=== PATIENT | male | born 1960 | race African-American/Black ===

== ENCOUNTER 2020-05-07 10:08 | Observation (INO) | payer BC, SELFPAY ==
[2020-05-07] VITALS (14 sets, daily range): BP systolic 112–171; BP diastolic 61–104; PULSE 50–83; RESP 14–25; TEMP 36.2–36.9; O2SAT 92–100
--- NOTE | ~2020-05-07 | XR_ITS ---
EXAMINATION: CYSTOGRAM DATE: 05/07/2020 15:44 INDICATION: Urethral dilation. Complex catheter placement. TECHNIQUE: 8 fluoroscopic spot images of the pelvis were obtained during procedure performed by Dr. Hong lynne. Radiologist was not present for the imaging or procedure. The amount of fluoroscopy time use d during this procedure was 0.4 minutes. COMPARISON: None. FINDINGS: Fluoroscopic images demonstrate a wire advanced into the bladder. A balloon passed over the wire proj ects over the pubic symphysis likely for urethral dilation. Final image demonstrates the bulb with a Thomason catheter as well as small amount of contrast within the bladder with no evident contrast extrav asation. IMPRESSION: 1. Fluoroscopy utilized during reported urethral dilation with no evident post procedure contrast ext ravasation. See procedure note for further detail. Reviewed, dictated and finalized at location A. IMPRESSION: 1. Fluoroscopy utilized during reported urethral dilation with no evident post procedure contrast extravasation. See procedure note for further detail.
[2020-05-07] MEDS: LIDOCAINE HCL 2% GEL UROJET 10 ML PKG MUCOUS MEM ×2 (10:29→15:20)
--- NOTE | 2020-05-07 10:32 | PC.NURSE ---
UNSUCCESSFUL ATTEMPTS X2 FOR PLACEMENT OF VANCE CATH. COUDE USED SECOND TIME WITHOUT SUCCESS, TIERRA CARLSON INFORMED, STATES THAT SHE WILL CONTACT UROLOGY FOR PLACEMENT.
--- NOTE | 2020-05-07 10:34 | ED.MALEGU ---
HPI - Male Genitourinary General Chief complaint: Abdominal Pain <MIKA Howard Last Filed: 05/07/20 13:24> Stated complaint: ABD PAIN/URINARY RETENTION <MIKA Howard Last Filed: 05/07/20 13:24> Source: patient <MIKA Howard Last Filed: 05/07/20 13:24> Mode of arrival: EMS <MIKA Howard Last Filed: 05/07/20 13:24> Limitations: no limitations <MIKA Howard Last Filed: 05/07/20 13:24> History of Present Illness HPI Narrative: This is a 59 year old male that presents to the ER for urinary retention since this morning. Reports he has been unable to void and when he tries to it is painful. Reports he does take a medication for his prostate, but he is unsure what it is. Reports he has not had trouble with urinary retention in the past. Denies fever, abdominal pain, nausea, or vomiting. <MIKA Howard Last Filed: 05/07/20 13:24> Related Data Home medications: Home Medications Medication Instructions Recorded Confirmed amlodipine [Norvasc] 2.5 mg PO DAILY 05/07/20 05/07/20 atorvastatin [Lipitor] 40 mg PO DAILY 05/07/20 05/07/20 chlorthalidone 25 mg PO DAILY 05/07/20 05/07/20 lisinopril [Prinivil] 10 mg PO DAILY 05/07/20 05/07/20 potassium chloride [Klor-Con M20] 20 meq PO DAILY 05/07/20 05/07/20 tamsulosin [Flomax] 0.4 mg PO DAILY 05/07/20 05/07/20 <MIKA Howard Last Filed: 05/07/20 13:24> Allergies/Adverse reactions: Allergies Allergy/AdvReac Type Severity Reaction Status Date / Time No Known Allergies Allergy Verified 05/07/20 14:07 <MIKA Howard Last Filed: 05/07/20 13:24> Review of Systems Review of Systems: Narrative: CONSTITUTIONAL: Denies fever GASTROINTESTINAL: Reports abdominal pain. Denies nausea, vomiting, or diarrhea. GENITOURINARY: Reports dysuria and hematuria. <Quynh Christopher PA-C - Last Filed: 05/07/20 13:24> All systems reviewed & are unremarkable except as noted in HPI and below <Quynh Christopher PA-C - Last Filed: 05/07/20 13:24> [facility] Past Medical History Medical History: Medical History History of hypertension <Quynh Christopher PA-C - Last Filed: 05/07/20 13:24> Social History Social History: Social History Smoking status: Never smoker Substance use: never Gender identity (if verbalized by the patient): Male <Qunyh Christopher PA-C - Last Filed: 05/07/20 13:24> Exam Narrative: Exam Narrative: GENERAL: Well-appearing, obese, and in mild acute distress due to urinary discomfort. HEAD: Normocephalic, atraumatic. EYES: EOMI. CHEST: Clear to auscultation. No respiratory distress. No wheezes rales or rhonchi HEART: Regular rate and rhythm. No murmur heard. Normal peripheral pulses. ABDOMEN: Soft, nontender, nondistended, normal active bowel sounds. EXTREMITIES: Normal range of motion. No edema. SKIN: Warm, dry, no rash. NEURO: No focal deficits. Alert and oriented x3. PSYCH: Normal mood and affect <Quynh Christopher PA-C - Last Filed: 05/07/20 13:24> Course PIT TANNER/PA Physician Supervision For this patient encounter, I reviewed the PIT TANNER or PA documentation, treatment plan, and medical decision making; and I had [id number] time with this patient. He presented with urinary retention. Staff attempted to place renner catheter but they were unable to get. He was able to urinate a small amount and it was bloody. Urologist also unable to pass catheter so he will be taken to ER. HE is sitting in bed with mild distress due to pain. Respiratory stable. <Izabela Ball MD - Last Filed: 05/07/20 16:32> Consultations Consultation #1: Urology, Dr. Arce was consulted who also attempted at Renner catheter placement with bedside cystoscopy. Were still unable to get past a stricture in the urethra. Patient will be taken to
[2020-05-07 10:41] LABS: Add Urine Microscopic? YES; Appearance Urine Cloudy (Clear); Bilirubin Urine Negative (Negative); Blood Urine 3+ (Negative); Color Urine Red (Yellow); Glucose Urine UA Negative (Negative); Ketones Urine Negative (Negative); Leukocyte Esterase Ur Trace LEU/UL (Negative); Mucus Urine Rare /lpf; Nitrate Urine Negative (Negative); Protein Urine 1+ mg/dL (Negative); RBC Urine >75 /hpf (0-2); Specific Grav Ur 1.014 (1.001-1.035); Squamous Epithelial Cell Urine Rare /hpf (Few); Urobilinogen Urine Negative mg/dL (<2.0); WBC Urine 21-30 /hpf
--- NOTE | 2020-05-07 10:47 | PC.NURSE ---
UPON ROUNDING ON PT, PT ON PHONE UPSET WITH FAMILY THAT HE HAS NOT GOT NOTHIN FOR THIS PAIN. I REMINDED PT THAT HE RECIEVED PAIN MEDICATION EN ROUTE (SEE INITIAL NOTE) AND THAT I DID INJECT LIDOCAINE INTO HIS URETER TO HEAL NUMB THE AREA BUT THAT IT TAKES TIME TO TAKE EFFECT. PT HUNG UP PHONE ABRUPTLY. NO FURTHER QUESTIONS.
[2020-05-07 10:51] LABS: Basophils Percent Auto 0.7 % (0.2-1.2); Eosinophils Percent Auto 0.9 % (0-4.4); Hematocrit 44.1 % (42.0-52.0); Hemoglobin 15.1 g/dL (14.0-18.0); Immature Granulocyte Absolute 0.01 K/mm3 (0.00-0.031); Immature Granulocyte Percent A 0.2 % (0-0.5); Lymphocytes Absolute Auto 1.14 K/mm3 (0.9-3.2); Lymphocytes Percent Auto 25.4 % (18.3-44.2); Mean Corpuscular HGB Conc 34.2 g/dl (32-36); Mean Corpuscular Hemoglobin 32.1 pg (26-34); Mean Corpuscular Volume 93.8 fl (80-100); Mean Platelet Volume 10.3 fl (7.4-10.4); Monocytes Absolute Auto 0.3 K/mm3 (0.1-0.6); Monocytes Percent Auto 7.6 % (2.6-8.5); Neutrophils Absolute Auto 2.9 K/mm3 (1.3-6.7); Neutrophils Percent Auto 65.2 % (45.5-73.1); Platelet Count Result 202 k/mm3 (150-375); White Blood Count 4.5 K/mm3 (4.5-10.0)
[2020-05-07 11:03] LABS: Blood Urea Nitrogen 18 mg/dL (9-20); Calcium 9.7 mg/dL (8.4-10.2); Carbon Dioxide 25 mmol/L (22-30); Chloride 103 mmol/L (98-107); Estimated CRCL calculation 90 ml/min; Estimated Glomerular Filt Rate > 60; Glucose 120 mg/dL (75-110); Potassium 3.7 mmol/L (3.4-5.0); Sodium 137 mmol/L (137-145)
--- NOTE | 2020-05-07 11:53 | PC.NURSE ---
UPDATED PT WHEN ROUNDING THAT WE ARE STILL AWAITING ARRIVAL OF UROLOGY TO ASSESS FOR CATHETER INSERTION. TIERRA ALDO INFORMED STATES THAT SHE HAS NOT SEEN UROLOGY YET.
[2020-05-07] MEDS: ONDANSETRON INJ 4 MG/2 ML VIAL IV PUSH ×2 (12:17→16:00)
[2020-05-07] MEDS: MORPHINE SULFATE 2 MG/ML INJ IV PUSH (12:17)
--- NOTE | 2020-05-07 12:31 | PC.NURSE ---
urology at bedside for cath placement.
--- NOTE | 2020-05-07 12:53 | PC.NURSE ---
pablito hoover at bedside at this time to attempt renner placement.
--- NOTE | 2020-05-07 13:22 | PC.NURSE ---
report called to driver/merchandiser at this time.
--- NOTE | 2020-05-07 13:31 | PM.IMHP ---
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 He states that he feels as if he has to void but has extreme pain is unable to do so. There has been multiple attempts at Thomason catheter placement by the emergency room. Were asked to see him regarding further management. Patient states that he is had an episode of urinary retention before but did not require any intervention as he was able to eventually void. States that he does have a good force of stream but strains to empty his bladder. Denied any significant nocturia at this point time. Denies any prior prostatic or urethral surgery. Review of Systems Review of Systems: All systems reviewed & are unremarkable except as noted in HPI and below PMFSH Past Medical History Medical History History of hypertension Social History Social History Smoking status: Never smoker Substance use: never Gender identity (if verbalized by the patient): Male Meds Home Medications and Allergies Home Medications Medication Instructions Recorded Confirmed Type amlodipine 2.5 mg PO DAILY 05/07/20 History Allergies Allergy/AdvReac Type Severity Reaction Status Date / Time No Known Allergies Allergy Verified 05/07/20 10:44 Vital Signs Vital Signs - 24 hr 05/07/20 10:06 05/07/20 10:32 05/07/20 11:41 Temperature 36.7 C Pulse Rate 79 79 64 Respiratory Rate 21 H 25 H 23 H Blood Pressure 171/86 H 171/86 H Pulse Oximetry 100 100 97 05/07/20 12:32 05/07/20 13:23 Temperature Pulse Rate 83 60 Respiratory Rate 19 15 Blood Pressure 145/102 H 142/104 H Pulse Oximetry 100 100 Exam Const: General: uncomfortable HENMT: General nose exam: Normal nares present Eyes: EOM: EOMs intact bilaterally Resp: Effort & Inspection: normal respiratory effort Cardio: Rate: regular rate : Male General Exam: Yes normal external exam Neuro: Speech: normal speech H&P: Results Labs Labs: Short CBC 05/07/20 Range/Units 10:44 WBC 4.5 (4.5-10.0) K/mm3 Hgb 15.1 (14.0-18.0) g/dL Hct 44.1 (42.0-52.0) % Plt Count 202 (150-375) k/mm3 BMP 05/07/20 10:44 Sodium 137 Potassium 3.7 Chloride 103 Carbon Dioxide 25 BUN 18 Creatinine 1.10 Glucose 120 H Calcium 9.7 Urine 05/07/20 Range/Units 10:31 Urine Color Red H (Yellow) Urine Appearance Cloudy H (Clear) Urine pH 7.0 (5.0-9.0) Ur Specific [place] 1.014 (1.001-1.035) Urine Protein 1+ H (Negative) mg/dL Urine Glucose (UA) Negative (Negative) mg/dL Assessment and Plan Assessment and plan (1) Acute urinary retention: Code(s): R33.8 - Other retention of urine Status: Acute Assessment and Plan: Flexible cystoscopy was attempted at the bedside. He was prepped and draped in usual sterile fashion. Sixteen [place] scope was inserted into the urethra. At the bulbar urethra were unable to visualize any orifice. most likely has had a urethral stricture Which is made Thomason catheter placement unsuccessful. Multiple attempts at Thomason catheter placement has also resulted in some Thomason trauma to the area. will need to go to the operating room for cystoscopy retrograde urethrogram urethral dilation and possible suprapubic tube if unsuccessful at Thomason placement. I have spoken to his daughters And patient as well.
[2020-05-07] MEDS: LACTATED RINGERS 1,000 ML 30 ML IV CONT (13:50)
--- NOTE | 2020-05-07 14:04 | WPDANESEPPF ---
Anes - Initial Pre Proc Eval Procedure: Operation Date: 05/07/20 14:00 Proposed Procedures p CYSTOSCOPY,URETHROGRAM,POSSIBLE URETHERAL DILATATION - Biju Arce MD s POSSIBLE SUPRAPUBIC CATHETER INSERTION - Biju Arce MD Date/Time: 05/07/20 14:04 Surgeon: Biju Arce MD Pre Op Diagnosis: ABD PAIN/URINARY RETENTION Patient Data Age: 59 Gender: M Height: 5 ft 9 in Weight: 136.4 kg Last Vital Signs Temp 98.1 F 05/07/20 10:06 Pulse 60 05/07/20 13:23 Resp 15 05/07/20 13:23 BP 142/104 H 05/07/20 13:23 Pulse Ox 100 05/07/20 13:23 Allergies Allergy/AdvReac Type Severity Reaction Status Date / Time No Known Allergies Allergy Verified 05/07/20 10:44 Home Medications Medication Instructions Recorded Confirmed Type amlodipine [Norvasc] 2.5 mg PO DAILY 05/07/20 05/07/20 History atorvastatin [Lipitor] 40 mg PO DAILY 05/07/20 05/07/20 History chlorthalidone 25 mg PO DAILY 05/07/20 05/07/20 History lisinopril [Prinivil] 10 mg PO DAILY 05/07/20 05/07/20 History potassium chloride [Klor-Con M20] 20 meq PO DAILY 05/07/20 05/07/20 History tamsulosin [Flomax] 0.4 mg PO DAILY 05/07/20 05/07/20 History Laboratory Tests 05/07/20 05/07/20 05/07/20 10:31 10:44 10:44 WBC 4.5 K/mm3 K/mm3 (4.5-10.0) RBC 4.70 M/mm3 M/mm3 (4.6-6.20) Hgb 15.1 g/dL g/dL (14.0-18.0) Hct 44.1 % % (42.0-52.0) MCV 93.8 fl fl (80-100) MCH 32.1 pg pg (26-34) MCHC 34.2 g/dl g/dl (32-36) RDW 13.0 % % (11.5-14.5) Plt Count 202 k/mm3 k/mm3 (150-375) MPV 10.3 fl fl (7.4-10.4) Immature Gran % (Auto) 0.2 % % (0-0.5) Neut % (Auto) 65.2 % % (45.5-73.1) Lymph % (Auto) 25.4 % % (18.3-44.2) [place] % (Auto) 7.6 % % (2.6-8.5) Eos % (Auto) 0.9 % % (0-4.4) Baso % (Auto) 0.7 % % (0.2-1.2) Lymph # (Auto) 1.14 K/mm3 K/mm3 (0.9-3.2) [place] # (Auto) 0.3 K/mm3 K/mm3 (0.1-0.6) Eos # (Auto) 0.0 K/mm3 K/mm3 (0-0.3) Baso # (Auto) 0.0 K/mm3 K/mm3 (0.0-0.1) Abs Immat Gran (auto) 0.01 K/mm3 K/mm3 (0.00-0.031) Absolute Neuts (auto) 2.9 K/mm3 K/mm3 (1.3-6.7) Absolute Nucleated RBC 0.0 K/mm3 K/mm3 (0.0-0.012) Nucleated RBC % 0.0 % % (0.0-0.2) Sodium 137 mmol/L mmol/L (137-145) Potassium 3.7 mmol/L mmol/L (3.4-5.0) Chloride 103 mmol/L mmol/L (98-107) Carbon Dioxide 25 mmol/L mmol/L (22-30) BUN 18 mg/dL mg/dL (9-20) Creatinine 1.10 mg/dL mg/dL (0.7-1.3) Estim Creat Clear Calc 90 ml/min ml/min Estimated GFR > 60 (59 - ) Glucose 120 mg/dL H mg/dL (75-110) Calcium 9.7 mg/dL mg/dL (8.4-10.2) Urine Color Red H (Yellow) Urine Appearance Cloudy H (Clear) Urine pH 7.0 (5.0-9.0) Ur Specific [place] 1.014 (1.001-1.035) Urine Protein 1+ mg/dL H mg/dL (Negative) Urine Glucose (UA) Negative mg/dL mg/dL (Negative) Urine Ketones Negative mg/dL mg/dL (Negative) Ur Blood (Man) 3+ H (Negative) Urine Nitrate Negative (Negative) Urine Bilirubin Negative (Negative) Urine Urobilinogen Negative mg/dL mg/dL (<2.0) Leukocyte Esterase Rfl Trace EVIN/UL H EVIN/UL (Negative) Urine RBC >75 /hpf H /hpf (0-2) Urine WBC 21-30 /hpf H /hpf Ur Squamous Epith Cells Rare /hpf /hpf (Few) Hyaline Casts 5-9 /lpf H /lpf (None) Urine Mucus Rare /lpf /lpf Patient hx anesthesia problems: none Family hx anesthesia problems: none PMFSH Past Medical History Medical History History of hypertension Social History
--- NOTE | 2020-05-07 15:44 | PM.PROC ---
Procedure Note - Detailed Date of procedure: 05/07/20 Pre-op diagnosis: ABD PAIN/URINARY RETENTION Post-op diagnosis: other (Urinary retention and urethral stricture with false passage) Procedure performed: Cystoscopy, urethral dilation with Amplatz dilators, cystogram. Description of procedure: Patient was taken to the operative suite and correctly identified. Once general anesthesia was obtained he was placed in the dorsal lithotomy position and prepped and draped usual sterile fashion. The meatus was dilated up to 22 [place]. Nineteen [place] cystoscope was then inserted into the urethra. It was noted that in the bulbar area he had a false passage with some trauma. We were able to see a wisp of mucosa with what appeared to be the urethral opening. We were able to place a guidewire into this area and see it coil in the bladder under fluoroscopy. We did not do a urethrogram to start as extravasation was going to be present as well as I did not want to disrupt any chance of finding this with spot of tissue. Under fluoroscopy optic guidance we then dilated the urethra with Amplantz dilators up to 22 [place]. We then repeated a cystoscopy. He had quite a bit friable tissue at the bulbar urethra. The prostate had some mild lateral lobe hypertrophy but also had somewhat of an elevated median bar. Upon entering the bladder the bladder was inspected sent tired. Both ureteral orifices normal anatomic position. He has 1+ trabeculation with a few cellules. No tumors noted. Scope was removed. 2% viscous lidocaine was inserted into the urethra. Twenty [place] tip catheter was then passed over the wire into the bladder and inflated with 10 cc of sterile water. Cystogram was performed to confirm placement. There was no extravasation at this point time. Patient is taken recovery room stable condition. 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 I have spoken to the patient's and daughter. Recommendation is to leave the catheter in until next week. He will need to find a local urologist to take over his care. Anesthesia: GLMA Surgeon: Biju Arce MD Drains: Yes Packing: No Pathology: none sent Complications: No immediate complications Condition: stable Disposition: PACU
[2020-05-07] MEDS: OXYBUTYNIN CHLORIDE 5 MG TABLET BY MOUTH (18:03)
[2020-05-07] MEDS: CIPROFLOXACIN 500 MG TAB PO (20:18)
[2020-05-08 06:00] VITALS: BP 110/62; PULSE 54; RESP 12; TEMP 36.7; O2SAT 100
[2020-05-08 08:30] VITALS: BP 135/72; PULSE 76
[2020-05-08] MEDS: TAMSULOSIN HCL 0.4 MG CAPSULE PO (08:31)
[2020-05-08] MEDS: AMLODIPINE BESYLATE 2.5 MG TABLET PO (08:31)
[2020-05-08] MEDS: lisinopriL 10 MG TABLET PO (08:32)
[2020-05-08] MEDS: ATORVASTATIN 40 MG TABLET PO (08:32)
[2020-05-08] MEDS: POTASSIUM CHLORIDE 20 MEQ TABLET.ER PO (08:32)
[2020-05-08] MEDS: CIPROFLOXACIN 500 MG TAB PO (08:32)
[2020-05-08] MEDS: OXYBUTYNIN CHLORIDE 5 MG TABLET BY MOUTH (08:32)
[2020-05-08] MEDS: CHLORTHALIDONE 25 MG TABLET PO (08:33)
--- NOTE | 2020-05-08 09:03 | P.PNAN_ITS ---
Anes - Prog Note Post-Op Date/Time: 05/08/20 09:03 Cardiovascular status: normal Respiratory status: normal Airway patency: baseline Mental status: baseline Post-Op hydration status: normal Vital Signs: Last Vital Signs Temp 36.7 C 05/08/20 06:00 Pulse 54 L 05/08/20 06:00 Resp 12 05/08/20 06:00 BP 110/62 05/08/20 06:00 Pulse Ox 100 05/08/20 06:00 I/O: Intake & Output 05/07/20 05/08/20 05/08/20 23:59 07:59 15:59 Intake Total 390 30 480 Output Total 40 1700 Balance 350 -1670 480 Laboratory Tests 05/07/20 10:44 05/07/20 10:44 05/07/20 05/07/20 05/07/20 10:31 10:44 10:44 WBC 4.5 RBC 4.70 Hgb 15.1 Hct 44.1 MCV 93.8 MCH 32.1 MCHC 34.2 RDW 13.0 Plt Count 202 MPV 10.3 Immature Gran % (Auto) 0.2 Neut % (Auto) 65.2 Lymph % (Auto) 25.4 [place] % (Auto) 7.6 Eos % (Auto) 0.9 Baso % (Auto) 0.7 Lymph # (Auto) 1.14 [place] # (Auto) 0.3 Eos # (Auto) 0.0 Baso # (Auto) 0.0 Abs Immat Gran (auto) 0.01 Absolute Neuts (auto) 2.9 Absolute Nucleated RBC 0.0 Nucleated RBC % 0.0 Sodium 137 Potassium 3.7 Chloride 103 Carbon Dioxide 25 BUN 18 Creatinine 1.10 Estim Creat Clear Calc 90 Estimated GFR > 60 Glucose 120 H Calcium 9.7 Urine Color Red H Urine Appearance Cloudy H Urine pH 7.0 Ur Specific [place] 1.014 Urine Protein 1+ H Urine Glucose (UA) Negative Urine Ketones Negative Ur Blood (Man) 3+ H Urine Nitrate Negative Urine Bilirubin Negative Urine Urobilinogen Negative Leukocyte Esterase Rfl Trace H Urine RBC >75 H Urine WBC 21-30 H Ur Squamous Epith Cells Rare Hyaline Casts 5-9 H Urine Mucus Rare Post-procedural complaints: none Patient Feedback: Patient satisfied with anesthetic care.
--- NOTE | 2020-05-08 09:41 | WPDUROPN2 ---
Progress Note: A&P Assessment and Plan (1) Acute urinary retention: Code(s): R33.8 - Other retention of urine Status: Acute Assessment and Plan: Ok to discharge home today with renner. Patient will go home to [place] and follow up with Urologist next week for renner removal. Patient is doing well today, denies pain in the abdomen and renner is draining well. He understands that he may continue to have slight bloody drainage from the urethral meatus. Subjective Subjective Date/Time Seen: 05/08/20 09:41 POD #1 Cytsocopy, urethral dilation, cystogram, renner placement. Review of Systems Cardiovascular: Cardiovascular: Reports no additional cardiovascular complaints Respiratory: Respiratory: Denies dyspnea Gastrointestinal: Gastrointestinal: Reports no additional gastrointestinal complaints, Denies abdominal pain, Denies nausea and Denies vomiting Genitourinary: Genitourinary: Denies hematuria Exam Resp: Effort & Inspection: normal respiratory effort Cardio: Rate: regular rate GI: GI Palp: No abdominal tenderness : Meatus: Blood at meatus present Scrotum: scrotum normal Urinary Catheter: Urinary Catheter: patent and draining and urine clear Extrem: General: no edema Objective Data Vital Signs Vital Signs: Vital Signs - 24 hr 05/07/20 10:06 05/07/20 10:32 05/07/20 11:41 Temperature 98.1 F Pulse Rate 79 79 64 Respiratory Rate 21 H 25 H 23 H Blood Pressure 171/86 H 171/86 H Pulse Oximetry 100 100 97 05/07/20 12:32 05/07/20 13:23 05/07/20 13:47 Temperature 98.2 F Pulse Rate 83 60 63 Respiratory Rate 19 15 20 Blood Pressure 145/102 H 142/104 H 125/61 Pulse Oximetry 100 100 99 05/07/20 15:39 05/07/20 15:50 05/07/20 16:05 Temperature 97.5 F L Pulse Rate 75 54 L 51 L Respiratory Rate 20 18 18 Blood Pressure 113/75 112/76 133/76 Pulse Oximetry 100 100 97 05/07/20 16:20 05/07/20 16:35 05/07/20 16:50 Temperature Pulse Rate 50 L 54 L 64 Respiratory Rate 20 14 16 Blood Pressure 131/78 134/79 134/77 Pulse Oximetry 100 96 92 05/07/20 17:30 05/07/20 22:00 05/08/20 06:00 Temperature 97.2 F L 98.5 F 98.0 F Pulse Rate 58 L 61 54 L Respiratory Rate 18 16 12 Blood Pressure 139/71 117/67 110/62 Pulse Oximetry 100 98 100 05/08/20 08:30 Temperature Pulse Rate 76 Respiratory Rate Blood Pressure 135/72 Pulse Oximetry Intake/Output Intake/Output: Intake & Output 05/05/20 05/06/20 05/07/20 05/08/20 23:59 23:59 23:59 23:59 Intake Total 490 510 Output Total 40 1700 Balance 450 -1190 Meds/Results Medications: Active Medications Generic Name Dose Route Start Last Admin Trade Name Freq PRN Reason Stop Dose Admin Hydrocodone Bitart/Acetaminophen 1 tab 05/07/20 16:59 [place] 5-325 Mg PO Q4H PRN Pain Rated 4-6 Amlodipine Besylate 2.5 mg 05/08/20 09:00 05/08/20 08:31 Norvasc PO 2.5 mg DAILY HEIDI Administration Atorvastatin Calcium 40 mg 05/08/20 09:00 05/08/20 08:32 Lipitor PO 40 mg DAILY HEIDI Administration Chlorthalidone 25 mg 05/08/20 09:00 05/08/20 08:33 [place] PO 25 mg DAILY HEIDI Administration Ciprofloxacin 500 mg 05/07/20 21:00 05/08/20 08:32 Cipro Po PO 500 mg Q12HR HEIDI Administration Hyoscyamine 0.0625 mg 05/07/20 16:59 Levsin Tablet PO Q4H PRN Bladder Spasm Lisinopril 10 mg 05/08/20 09:00 05/08/20 08:32 Prinivil PO 10 mg DAILY HEIDI Administration Oxybutynin Chloride 5 mg 05/07/20 17:00 05/08/20 08:32 Ditropan BY MOUTH 06/06/20 17:01 5 mg TID HEIDI Administration Potassium Chloride 20 meq 05/08/20 09:00 05/08/20 08:32 Kcl Tablet PO 20 meq DAILY HEIDI Administration Tamsulosin HCl 0.4 mg 05/08/20 09:00 05/08/20 08:31 Flomax PO 0.4 mg DAILY HEIDI Administration Radiology Results: ITS Impressions Cystogram 05/07/20 17:18 IMPRESSION: 1. Fluoroscopy utilized during reported urethral dilation with no
[2020-05-08 13:21] VITALS: BP 167/72; PULSE 75; RESP 20; TEMP 36.6; O2SAT 98
--- NOTE | 2020-05-08 13:32 | DS_ITS ---
DATE OF DISCHARGE: PREOPERATIVE DIAGNOSIS: Abdominal pain, urinary retention. POSTOPERATIVE DIAGNOSIS: Urinary retention and urethral stricture with false passage. The patient underwent cystoscopy, urethral dilation with Amplatz dilators, and cystogram per Dr. Biju Arce on May 07, 2020. The patient was taken to recovery in stable condition and then to the floor for further observation. Tolerated procedure well. The patient has done very well overnight, does have minimal bleeding at urethral meatus. Okay to discharge home today on all previous home medications including new medication of Bactrim twice a day for 3 days as well as [place] for pain. The patient is to resume normal diet. ACTIVITY: As tolerated. The patient will follow up with urologist in [place], where he is from. Catheter removed next week. The patient will go home with Paddy. Daysi I MT: Vikram
== END 2020-05-08 13:42 ==
LOC: ANHED 13:24 → ANHSURGERY 13:26 → ANH2MED 05-08 09:06
PROVIDERS: Physician Assistant; Admitting Provider Urology; Emergency Provider General Practice; Visit Provider Urology
PROC: (CPT 52352; principal; 2020-05-07 14:00)
DX: R33.9 Retention of urine, unspecified (principal); N36.5 Urethral false passage; N35.919 Unspecified urethral stricture, male, unspecified site; R10.9 Unspecified abdominal pain; I10 Essential (primary) hypertension; E66.01 Morbid (severe) obesity due to excess calories; Z68.41 Body mass index [BMI] 40.0-44.9, adult
CPT/HCPCS: 52332; 36415; 51610; 74450; 80048; 81001; 85025; 87086; 96365; 96366; 96367; 96375; 96376; 99199; 99285; A9270; C1726; C1758; C1769; J0131; J0696; J1100; J1200; J2270; J2405; J2704; J3010; J7030; J7120